=== PATIENT | female | born 1940 | race Caucasian/White ===

== ENCOUNTER → 2016-03-06 | Outpatient (CLI) | payer BC ==
[~2016-03-06] MED LIST: IBUP-103 PO; OXYC7.5T65 PO; POLY335040 PO; PROM25TA PO; PROM25TA16 PO; [UNRECOGNIZED DRUG - CODE] PO
== END | disposition home or self-care (01) ==
LOC: C.LABSPEC 12:02
PROVIDERS: ATTEND Internal Medicine
DX: J02.9 Acute pharyngitis, unspecified (principal)

== ENCOUNTER → 2016-03-24 | Outpatient (CLI) | payer BC ==
--- NOTE | 2016-03-24 15:09 | MAMMOGRAPHY REPORT ---
BILATERAL DIGITAL SCREENING MAMMOGRAM WITH CAD: 03/24/2016 CLINICAL HISTORY: Routine screening. Patient has no complaints. TECHNIQUE: Current study was also evaluated with a Computer Aided Detection (CAD) system. Bilatera l CC and MLO views were obtained. COMPARISON: Comparison is made to exams dated: 03/15/2015 mammogram, 03/13/2014 mammogram, 02/18/2013 ma mmogram, 02/09/2012 mammogram, and 02/07/2011 mammogram - [facility]. BREAST COMPOSITION: There are scattered areas of fibroglandular density in both breasts. FINDINGS: No suspicious masses, calcifications, or areas of architectural distortion are noted in e ither breast. There has been no significant interval change compared to prior exams. Nodular asymme try seen within the right medial breast on the cc view is stable dating back to at least the 2007 ex am, and considered benign given long-term stability. Bilateral benign-appearing calcifications are not significantly changed. IMPRESSION: ACR BI-RADS CATEGORY 2: BENIGN There is no mammographic evidence of malignancy. A 1 year screening mammogram is recommended. The p atient will receive written notification of the results. Approximately 10% of breast cancers are not detected with mammography. A negative mammographic repor t should not delay biopsy if a clinically suggestive mass is present. Marcie Jung M.D. /:03/24/2016 14:45:21 Linoleum Layer: Rosemary WILSON)([place]), [facility] letter sent: Normal 1/2 BI-RADS Code: ACR BI-RADS Category 2: Benign
== END | disposition home or self-care (01) ==
LOC: C.MAMM 14:08
PROVIDERS: ATTEND Internal Medicine
DX: Z12.31 Encounter for screening mammogram for malignant neoplasm of breast (principal)

== ENCOUNTER → 2016-09-05 | Outpatient (CLI) | payer BC ==
[~2016-09-05] MED LIST changes: +AREDS 2 PO; +BACL10TA PO; +FEXO1TAB58 PO
[2016-09-05 12:58] LABS: BASO ABS # 0.06 K/uL (0-0.2); COMPLETE YES; EOS % 4.2 %; LYMPH % 21.1 %; LYMPH ABS # 1.21 K/uL (1.2-3.4); MEAN CELL VOLUME 97.4 fL (80-100); MEAN CORPUSCULAR HEMOGLOBIN 31.8 pg (25-34); MEAN CORPUSCULAR HGB CONC 32.7 g/dl (32-36); MEAN PLATELET VOLUME 9.8 fL (7.4-10.4); MONO % 10.8 %; NEUT % 62.9 %; PLATELET COUNT 248 K/uL (130-400); WHITE BLOOD COUNT 5.74 K/uL (4.8-10.8)
[2016-09-05 13:05] LABS: ESTIMATED AVERAGE GLUCOSE 108 mg/dl; HA1C FLAG Normal (Normal)
[2016-09-05 13:13] LABS: ALT/SGPT 24 U/L (12-78); AST/SGOT 26 U/L (15-37); BLOOD UREA NITROGEN 14 mg/dl (7-18); BUN/CREATININE RATIO 19.7 (10-20); CALCIUM 9.3 mg/dl (8.5-10.1); CARBON DIOXIDE 29 mmol/L (21-32); CHLORIDE 105 mmol/L (98-107); CHOLESTEROL 244 mg/dl (0-200); CREATININE 0.73 mg/dl (0.60-1.20); GLUCOSE 84 mg/dl (70-99); POTASSIUM 4.6 mmol/L (3.5-5.1); SODIUM 138 mmol/L (136-145); TRIGLYCERIDES 73 mg/dl (0-150); VERY LOW DENSITY LIPOPROT CALC 15 mg/dl
[2016-09-05 13:16] LABS: ALB/GLOB RATIO 0.9 (0.9-2); ALKALINE PHOSPHATASE 89 U/L (45-117); CHOLESTEROL/HDL RATIO 3.3; HDL CHOLESTEROL 75 mg/dl
== END | disposition home or self-care (01) ==
LOC: C.LABSPEC 12:19
PROVIDERS: ATTEND Internal Medicine
DX: Z00.01 Encounter for general adult medical examination with abnormal findings (principal); R73.9 Hyperglycemia, unspecified; M19.90 Unspecified osteoarthritis, unspecified site; E78.5 Hyperlipidemia, unspecified; E55.9 Vitamin D deficiency, unspecified

== ENCOUNTER → 2016-09-15 | Outpatient (CLI) | payer BC | END | disposition home or self-care (01) | LOC: C.LABSPEC 14:40 | PROVIDERS: ATTEND Internal Medicine | DX: Z12.11 Encounter for screening for malignant neoplasm of colon (principal) ==

== ENCOUNTER 2016-11-18 03:20 | Emergency (ER) | payer BC ==
[~2016-11-18] VITALS: Ht 162.6 cm; Wt 65.0 kg
[~2016-11-18 03:20] MED LIST changes: -AREDS 2 PO; -BACL10TA PO; -FEXO1TAB58 PO
[2016-11-18 03:28] VITALS: TEMP 36.6; Ht 162.6 cm; Wt 65.0 kg
[2016-11-18 04:06] LABS: BASO % 1.2 %; BASO ABS # 0.07 K/uL (0-0.2); COMPLETE YES; IG% 0.5 %; MEAN CELL VOLUME 94.6 fL (80-100); MEAN CORPUSCULAR HGB CONC 32.8 g/dl (32-36); MEAN PLATELET VOLUME 8.8 fL (7.4-10.4); NEUT % 53.3 %; PLATELET COUNT 252 K/uL (130-400); RED BLOOD COUNT 4.23 M/uL (4.2-5.4); WHITE BLOOD COUNT 5.62 K/uL (4.8-10.8)
[2016-11-18] MEDS ORDERED: SODIUM CHLORIDE 0.9% 1000ML 1,000 ML IV STA (04:26)
[2016-11-18 04:27] LABS: ALT/SGPT 30 U/L (12-78); AST/SGOT 30 U/L (15-37); BLOOD UREA NITROGEN 18 mg/dl (7-18); BUN/CREATININE RATIO 23.7 (10-20); CALCIUM 9.5 mg/dl (8.5-10.1); CARBON DIOXIDE 26 mmol/L (21-32); CHLORIDE 107 mmol/L (98-107); CREATININE 0.74 mg/dl (0.60-1.20); GLUCOSE 76 mg/dl (70-99); POTASSIUM 3.7 mmol/L (3.5-5.1); SODIUM 142 mmol/L (136-145)
[2016-11-18 04:42] LABS: ALB/GLOB RATIO 0.9 (0.9-2); ALKALINE PHOSPHATASE 102 U/L (45-117)
[2016-11-18 04:47] LABS: URINE APPEARANCE CLEAR (CLEAR); URINE BILIRUBIN NEG (NEG); URINE COLOR YELLOW; URINE EPITHELIAL CELL AUTO >30 /lpf (0-5); URINE NITRITE NEG (NEG); URINE SPECIFIC GRAVITY 1.023 (1.000-1.030); UROBILINOGEN NEG (NEG)
[2016-11-18 04:48] LABS: MANUAL MICROSCOPIC REQUIRED? NO; REVIEW REQ? YES
[2016-11-18] MEDS ORDERED: BACL10TA PO (04:56)
[2016-11-18] MEDS ORDERED: FEXO1TAB58 PO (04:57)
[2016-11-18] MEDS ORDERED: AREDS 2 PO (05:00)
[2016-11-18] MEDS ORDERED: OPTIRAY 320 IV PRN (05:15)
[2016-11-18 06:00] VITALS: BP 122/75; PULSE 83; O2SAT 97
--- NOTE | 2016-11-18 06:26 | EMERGENCY ROOM VISIT NOTE ---
History Report prepared by Nika: Allegra Gregorio Under the Supervision of: Dr. Annette Quiroz D.O. First contact with patient: 03:39 Chief Complaint: DIZZY Stated Complaint: DIZZY,CRAMPS,SICK History of Present Illness The patient is a 76 year old female who presents to the Emergency Room with complaints of an episode of dizziness occurring this evening. The patient states that she got up to go to the bathroom and collapsed on the floor. She reports that her legs wouldn't work. She states that while on the floor she was nauseous, diaphoretic, slightly short of breath, and felt like she was going to pass out. She states she laid there for a while and told her not to move her when he came to help. She notes that she felt fine before going to bed and this had never happened before. She states that she did eat dinner last night, but notes that she had a Martini and a glass of wine. She states that that was 10 hours ago and she normally has something to drink every night. The patient complains of a cramp in her right ribs and cramps in her legs. She states that she normally gets leg cramps and is on Baclofen for it. She notes she last took it three days ago. The patient denies hurting herself when she fell and diarrhea. Source of History: patient Onset: this evening Position: other (global) Quality: other (global) Timing: other (episode) Associated Symptoms: + diaphoresis, + SOB, + nausea, No diarrhea Note: The patient complains of feeling like she was going to pass out and muscle cramping. The patient denies hurting herself when she fell. Review of Systems See HPI for pertinent positives & negatives. A total of 10 systems reviewed and were otherwise negative. Past Medical & Surgical Medical Problems: (1) No Known Active Medical Problems Surgical Problems: (1) History of back surgery (2) Hx of foot surgery (3) Hx of hysterectomy Family History Cancer Heart disease Hypertension Lung disease Social History Smoking Status: Former Smoker Smokeless Tobacco Use: No Alcohol Use: other (daily) Drug Use: none Marital Status: Housing Status: lives with significant other Occupation Status: retired Current/Historical Medications Scheduled Baclofen (Lioresal), 10 MG PO DAILY Fexofenadine-Pseudoephedrine (Afia-D 24 Hour Allergy), 1 TAB PO DAILY Polyethylene (Miralax Powder Packet), 17 GM PO DAILY [Areds 2], 2 TABS PO DAILY Allergies Coded Allergies: Codeine (Verified Allergy, Mild, `, 11/10/13) Physical Exam Vital Signs Date Time Temp Pulse Resp B/P (MAP) Pulse Ox O2 Delivery O2 Flow Rate FiO2 11/18/16 06:00 83 18 122/75 97 Room Air 11/18/16 05:30 76 15 116/72 99 Room Air 11/18/16 05:00 79 18 112/68 98 Room Air 11/18/16 04:31 101/62 11/18/16 04:30 79 20 97 Room Air 11/18/16 04:08 115/62 11/18/16 03:53 79 18 107/63 97 Room Air 91 119/71 96 91/68 11/18/16 03:45 83 11/18/16 03:28 36.6 81 20 106/68 98 Room Air Physical Exam HEENT: Head - normocephalic and atraumatic Pupils are equal, round, and reactive to light. Extraocular eye muscles are intact, and sclera are anicteric. Nose - moist nasal mucosa without discharge. Mouth - moist buccal mucosa. Oropharynx is nonerythematous and there is no tonsillar exudate or edema noted. Neck: Supple; no JVD, nuchal rigidity, cervical lymphadenopathy, or auscultated bruits. Heart: Regular rate and rhythm. There is a normal S1 and S2 with no murmurs, clicks, or gallops appreciated. Lungs: Clear to auscultation bilaterally with no wheezes, rales, or rhonchi. Abdomen: Soft, completely nontender, nondistended, with good bowel sounds. There are no palpable pulsatile masses or hepatosplenomegaly. There is no guarding, rigidity, or rebound noted. Extremities: No evidence of cyanosis, clubbing, or edema. There are easily palpable peripheral pulses. Skin: warm and dry with good turgor and no rashes. Medical Decision & Procedures ER Provider Diagnostic Interpretation: Radiology results as stated below per my review and the radiologist's interpretation: CT CHEST With Contrast: Comparison: CT chest 03/04/09 No pulmonary embolism detected. No consolidation. 3 mm right lower lobe pulmonary nodule (4/132), similar to prior. No pleural effusion of pneumothorax. Heart size is normal. No pericardial effusion. No thoracic aortic aneurysm or dissection. Small hiatal hernia. Radiologist: Toby Sandoval MD Study ready at 05:31 and initial results transmitted at 06:08. Laboratory Results 11/18/16 03:45 Red Blood Count 4.23, Mean Corpuscular Volume 94.6, Mean Corpuscular Hemoglobin 31.0, Mean Corpuscular Hemoglobin Concent 32.8, Mean Platelet Volume 8.8, Neutrophils (%) (Auto) 53.3, Lymphocytes (%) (Auto) 32.0, Monocytes (%) (Auto) 8.0, Eosinophils (%) (Auto) 5.0, Basophils (%) (Auto) 1.2, Neutrophils # (Auto) 2.99, Lymphocytes # (Auto) 1.80, Monocytes # (Auto) 0.45, Eosinophils # (Auto) 0.28, Basophils # (Auto) 0.07 11/18/16 03:45 Test 11/18/16 00:00 11/18/16 03:45 Urine Color YELLOW Urine Appearance CLEAR (CLEAR) Urine pH 6.0 (4.5-7.5) Urine Specific [place] 1.023 (1.000-1.030) Urine Protein TRACE (NEG) Urine Glucose (UA) NEG (NEG) Urine Ketones TRACE (NEG) Urine Occult Blood NEG (NEG) Urine Nitrite NEG (NEG) Urine Bilirubin NEG (NEG) Urine Urobilinogen NEG (NEG) Urine Leukocyte Esterase SMALL (NEG) Urine WBC (Auto) 1-5 /hpf (0-5) Urine RBC (Auto) 0-4 /hpf (0-4) Urine Hyaline Casts (Auto) >30 /lpf (0-5) Urine Epithelial Cells (Auto) >30 /lpf (0-5) Urine Bacteria (Auto) NEG (NEG) Urine Renal Epithelial Cells /lpf (0-5) Urine Crystals CALCIUM OXALATE (NONE Urine Pathogenic Casts /lpf (0) White Blood Count 5.62 K/uL (4.8-10.8) Red Blood Count 4.23 M/uL (4.2-5.4) Hemoglobin 13.1 g/dL (12.0-16.0) Hematocrit 40.0 % (37-47) Mean Corpuscular Volume 94.6 fL (80-100) Mean Corpuscular Hemoglobin 31.0 pg (25-34) Mean Corpuscular Hemoglobin Concent 32.8 g/dl (32-36) Platelet Count 252 K/uL (130-400) Mean Platelet Volume 8.8 fL (7.4-10.4) Neutrophils (%) (Auto) 53.3 % Lymphocytes (%) (Auto) 32.0 % Monocytes (%) (Auto) 8.0 % Eosinophils (%) (Auto) 5.0 % Basophils (%) (Auto) 1.2 % Neutrophils # (Auto) 2.99 K/uL (1.4-6.5) Lymphocytes # (Auto) 1.80 K/uL (1.2-3.4) Monocytes # (Auto) 0.45 K/uL (0.11-0.59) Eosinophils # (Auto) 0.28 K/uL (0-0.5) Basophils # (Auto) 0.07 K/uL (0-0.2) RDW Standard Deviation 45.1 fL (36.4-46.3) RDW Coefficient of Variation 12.9 % (11.5-14.5) Immature Granulocyte % (Auto) 0.5 % Immature Granulocyte # (Auto) 0.03 K/uL (0.00-0.02) D-Dimer 2250 ug/L FEU (0-500) Anion Gap 9.0 mmol/L (3-11) Est Creatinine Clear Calc Drug Dose 55.0 ml/min Estimated GFR () 90.6 Estimated GFR (Non- 78.1 BUN/Creatinine Ratio 23.7 (10-20) Calcium Level 9.5 mg/dl (8.5-10.1) Total Bilirubin 0.2 mg/dl (0.2-1) Aspartate Amino Transf (AST/SGOT) 30 U/L (15-37) Alanine Aminotransferase (ALT/SGPT) 30 U/L (12-78) Alkaline Phosphatase 102 U/L (45-117) Total Creatine Kinase 108 U/L (26-192) Creatine Kinase MB 2.2 ng/ml (0.5-3.6) Creatine Kinase MB Ratio 2.0 (0-3.0) Troponin I < 0.015 ng/ml (0-0.045) Total Protein 7.5 gm/dl (6.4-8.2) Albumin 3.6 gm/dl (3.4-5.0) Globulin 3.9 gm/dl (2.5-4.0) Albumin/Globulin Ratio 0.9 (0.9-2) Thyroid Stimulating Hormone (TSH) 2.620 uIu/ml (0.300-4.500) Chemistry Specimen Hemolysis Laboratory results per my review. Medications Administered Medications (Trade) Dose Ordered Sig/Lola Route Start Time Stop Time Status Last Admin Dose Admin Sodium Chloride 1,000 ml @ 999 mls/hr Q1H1M STAT IV 11/18/16 04:26 11/18/16 05:26 DC 11/18/16 04:26 999 MLS/HR Procedure 0426: Ordered NSS 1000 ml @ 999 mls/hr IV. ECG Indication: nausea Rate (beats per minute): 74 Rhythm: normal sinus Findings: no acute ischemic change, no ectopy ED Course 0342: Past medical records reviewed. The patient was evaluated in room A3. A complete history and physical exam was performed. A twelve-lead EKG was obtained as described above. An IV lock was initiated and labs were drawn as above. 0425: I reevaluated the patient and she is significantly orthostatic. Her blood pressure dropped by 30 points when she stood up. I am going to give her some fluids. 0426: Ordered NSS 1000 ml @ 999 mls/hr IV. 0459: I reevaluated the patient and she said she feels much better after receiving fluids. She has an elevated d-dimer. She will go for a CT scan. 0611: Upon reevaluation, the patient is feeling much better. I discussed findings and results with her. She verbalized agreement of the treatment plan. The patient was discharged home. Medical Decision The patient is a 76 year old female who presents to the Emergency Room with complaints of an episode of dizziness occurring this evening. Differential diagnoses include PE, cardiac dysrhythmia, dehydration, orthostasis , vasovagal syncope. LABS: D-dimer 2250 Normal white count Normal H&H Normal TSH Normal glucose Normal LFTs Negative cardiac enzymes Normal renal function Urine had trace proteins, trace ketones, small leukocyte esterase, negative bacteria, negative white blood cells, positive for calcium oxalate crystals. This is a 73-year-old female patient who presents to the emergency department after collapsing at home. The patient states that she stood up from bed and quickly fell to the ground and she felt that her legs gave out. She denies any history of episodes like this in the past. The patient had significant orthostasis on testing. She also describes some right lower chest wall discomfort and some leg cramping. This in conjunction with an elevated d-dimer made me concerned for a PE. CT scan of the chest was performed but was negative for PE. I encouraged the patient to keep herself well-hydrated to avoid orthostasis. I've asked the patient to follow-up with her PCP Medication Reconcilliation Current Medication List: was personally reviewed by me Blood Pressure Screening Patient's blood pressure: Normal blood pressure Blood pressure disposition: Did not require urgent referral Impression Primary Impression: Dehydration Scribe Attestation The scribe's documentation has been prepared under my direction and personally reviewed by me in its entirety. I confirm that the note above accurately reflects all work, treatment, procedures, and medical decision making performed by me. Departure Information Dispostion Home / Self-Care Referrals Louis Morales M.D. (PCP) Forms HOME CARE DOCUMENTATION FORM, IMPORTANT VISIT INFORMATION Patient Instructions My [facility] Additional Instructions Rest. Take plenty of clear liquids Follow up with PCP on Sunday for a recheck
--- NOTE | 2016-11-18 07:02 | DIAGNOSTIC IMAGING REPORT ---
CT ANGIOGRAM OF THE CHEST CLINICAL HISTORY: Atypical chest pain. Dizziness. COMPARISON STUDY: Chest x-ray dated 10/27/2011. Chest CT dated 03/04/2009. TECHNIQUE: Following the IV administration of 80 cc of Optiray 320, CT angiogram of the chest was performed from the upper abdomen to the thoracic inlet utilizing the pulmonary embolus protocol. Images are reviewed in the axial, sagittal, and coronal planes. 3-D MIPS images are created and assessed. IV contrast was administered without complication. A dose lowering technique was utilized adhering to the principles of ALARA. CT DOSE: 251.77 mGy.cm FINDINGS: Thyroid: Imaged portions of the thyroid gland are normal in size and attenuation. Thoracic aorta: There is mild atherosclerotic calcification of the thoracic aorta, which is normal in caliber and demonstrates standard 3-vessel arch anatomy. No dissection is seen. Pulmonary vasculature: The pulmonary trunk is normal in caliber. There are no filling defects identified in main, lobar, or segmental pulmonary branches to suggest pulmonary embolus. Heart: The heart is normal in size and configuration, and without pericardial effusion. Lungs and pleural spaces: There are scattered calcified granulomas. There is a 3 mm right lower lobe pulmonary nodule seen image #132. This was also seen in 2010. The lungs and pleural spaces are otherwise clear. The trachea and central airways are patent. Mediastinum: There is no mediastinal lymphadenopathy. Jessica: Clear. Axillae: There is no axillary lymphadenopathy. Upper abdomen: Partially visualized upper abdominal viscera is within normal limits. Skeletal structures: The skeletal structures are osteopenic. No lytic or blastic bony lesions are seen. IMPRESSION: 1. There is no evidence of pulmonary embolus in the main, lobar, or segmental pulmonary arteries. 2. There is no airspace consolidation or pleural effusion. Electronically signed by: Ede Grant M.D. 11/18/2016 7:01 AM Dictated Date/Time: 11/18/2016 6:55 AM
== END 2016-11-18 06:25 | disposition home or self-care (01) ==
LOC: C.EDB 03:21 → C.EDA 06:25
DX: E86.0 Dehydration (principal); Z90.710 Acquired absence of both cervix and uterus; Z80.9 Family history of malignant neoplasm, unspecified; Z82.49 Family history of ischemic heart disease and other diseases of the circulatory system; Z87.891 Personal history of nicotine dependence; Z79.899 Other long term (current) drug therapy

== ENCOUNTER → 2016-11-20 | Outpatient (CLI) | payer BC ==
[~2016-11-20] MED LIST changes: +AREDS 2 PO; +BACL10TA PO; +FEXO1TAB58 PO
--- NOTE | 2016-11-20 12:42 | DIAGNOSTIC IMAGING REPORT ---
R RIBS UNILATERAL WITH PA CHEST CLINICAL HISTORY: RIGHT SIDED RIB PAIN AFTER FALLING COMPARISON STUDY: Chest CTA 11/18/2016. FINDINGS: The lungs are clear. The heart is normal in size. No pneumothorax. No pleural effusions. Slight deformity within the right anterolateral eighth rib. This likely represents a nondisplaced fracture. IMPRESSION: Nondisplaced right anterolateral eighth rib fracture. Electronically signed by: Charly Andrews M.D. 11/20/2016 12:41 PM Dictated Date/Time: 11/20/2016 12:35 PM
== END | disposition home or self-care (01) ==
LOC: C.RAD 11:46
PROVIDERS: ATTEND Internal Medicine
DX: S22.31XA Fracture of one rib, right side, initial encounter for closed fracture (principal); W19.XXXA Unspecified fall, initial encounter

== ENCOUNTER → 2016-12-15 | Outpatient (CLI) | payer BC ==
[~2016-12-15] MED LIST changes: -IBUP-103 PO; -OXYC7.5T65 PO; -PROM25TA PO; -PROM25TA16 PO; -[UNRECOGNIZED DRUG - CODE] PO
[2016-12-15 17:54] LABS: BLOOD UREA NITROGEN 17 mg/dl (7-18); BUN/CREATININE RATIO 14.8 (10-20); CALCIUM 9.5 mg/dl (8.5-10.1); CARBON DIOXIDE 30 mmol/L (21-32); CHLORIDE 104 mmol/L (98-107); CREATININE 1.14 mg/dl (0.60-1.20); GLUCOSE 133 mg/dl (70-99); POTASSIUM 3.6 mmol/L (3.5-5.1); SODIUM 140 mmol/L (136-145)
== END | disposition home or self-care (01) ==
LOC: C.LABSPEC 17:35
PROVIDERS: ATTEND Internal Medicine
DX: Z01.818 Encounter for other preprocedural examination (principal)

== ENCOUNTER → 2016-12-18 | Outpatient (CLI) | payer BC ==
--- NOTE | 2016-12-18 12:21 | DIAGNOSTIC IMAGING REPORT ---
ULTRASOUND OF THE CAROTID ARTERIES CLINICAL HISTORY: DISEQUILIBRIUM, WORSENING HEADACHES COMPARISON STUDY: None. TECHNIQUE: Real-time, grayscale, and color Doppler sonography of the carotid arteries was performed. Imaging reviewed in the transverse and longitudinal planes. NASCET criteria was utilized for stenosis calcification. FINDINGS: There is no significant atherosclerotic plaque present . The peak systolic velocity within the right internal carotid artery is 58 cm/sec. The systolic velocity ratio of right internal to common carotid artery is 0.9. The peak systolic velocity within the left internal carotid artery is 80 cm/sec. The systolic velocity ratio left internal to common carotid artery is 1.4. Antegrade flow is seen in the vertebral arteries. The external carotid arteries are patent. Blood pressure in the right arm measured 112 mm/Hg. Blood pressure in the left arm measured 112 mm/Hg. A nonpathologically enlarged right cervical lymph node was visualized. IMPRESSION: No evidence of hemodynamically significant carotid stenosis. Electronically signed by: Mick Reagan M.D. 12/18/2016 12:19 PM Dictated Date/Time: 12/18/2016 12:18 PM
== END | disposition home or self-care (01) ==
LOC: C.ULTRBC 10:32
PROVIDERS: ATTEND Internal Medicine
DX: R42 Dizziness and giddiness (principal)

== ENCOUNTER → 2016-12-25 | Outpatient (CLI) | payer BC ==
[~2016-12-25] MED LIST changes: +GADAVIST IV PRN
--- NOTE | 2016-12-25 08:17 | DIAGNOSTIC IMAGING REPORT ---
Brain MRI WITH AND WITHOUT CONTRAST HISTORY: DISEQUILIBRIUM, WORSENING HEADACHES TECHNIQUE: Multiplanar multisequence MRI of the brain was performed both before and after the intravenous administration of contrast. COMPARISON STUDY: None. FINDINGS: There is no mass, hematoma, midline shift, or acute infarct. Mild mucosal thickening within the left maxillary sinus.. The mastoid air cells are clear. The ventricles and sulci demonstrate mild age-related involutional changes. Scattered foci of T2 hyperintensity seen within the periventricular and subcortical white matter are nonspecific but suggestive of mild microvascular ischemic changes. The major vascular flow voids at the skull base are well-maintained. No abnormal enhancement. IMPRESSION: No acute intracranial abnormality. Scattered foci of T2 hyperintensity seen within the periventricular and subcortical white matter are nonspecific but favor microvascular ischemic change. Electronically signed by: Charly Andrews M.D. 12/25/2016 8:16 AM Dictated Date/Time: 12/25/2016 7:57 AM
== END | disposition home or self-care (01) ==
LOC: C.MRIBC 06:58
PROVIDERS: ATTEND Internal Medicine
DX: R42 Dizziness and giddiness (principal); R51 Headache

== ENCOUNTER → 2016-12-27 | Outpatient (CLI) | payer BC ==
[~2016-12-27] MED LIST changes: -GADAVIST IV PRN
[2016-12-27 13:25] LABS: BASO % 1.7 %; BASO ABS # 0.07 K/uL (0-0.2); COMPLETE YES; EOS % 5.9 %; HEMATOCRIT 38.1 % (37-47); IG% 0.2 %; LYMPH % 26.7 %; LYMPH ABS # 1.08 K/uL (1.2-3.4); MEAN CELL VOLUME 95.7 fL (80-100); MEAN CORPUSCULAR HEMOGLOBIN 31.4 pg (25-34); MEAN CORPUSCULAR HGB CONC 32.8 g/dl (32-36); MEAN PLATELET VOLUME 9.5 fL (7.4-10.4); MONO % 13.8 %; NEUT % 51.7 %; PLATELET COUNT 300 K/uL (130-400); RED BLOOD COUNT 3.98 M/uL (4.2-5.4); WHITE BLOOD COUNT 4.05 K/uL (4.8-10.8)
[2016-12-27 13:40] LABS: ESTIMATED AVERAGE GLUCOSE 111 mg/dl; HA1C FLAG Normal (Normal)
[2016-12-27 15:27] LABS: ALT/SGPT 24 U/L (12-78); AMYLASE 57 U/L (25-115); BLOOD UREA NITROGEN 21 mg/dl (7-18); BUN/CREATININE RATIO 25.7 (10-20); CALCIUM 9.5 mg/dl (8.5-10.1); CARBON DIOXIDE 29 mmol/L (21-32); CHLORIDE 101 mmol/L (98-107); GLUCOSE 79 mg/dl (70-99); POTASSIUM 4.3 mmol/L (3.5-5.1); SODIUM 136 mmol/L (136-145)
[2016-12-27 15:30] LABS: ALKALINE PHOSPHATASE 106 U/L (45-117); AST/SGOT 25 U/L (15-37)
== END | disposition home or self-care (01) ==
LOC: C.LABSPEC 12:37
PROVIDERS: ATTEND Internal Medicine
DX: R73.9 Hyperglycemia, unspecified (principal); R11.0 Nausea; E55.9 Vitamin D deficiency, unspecified

== ENCOUNTER → 2017-01-01 | Outpatient (CLI) | payer BC ==
--- NOTE | 2017-01-01 07:15 | DIAGNOSTIC IMAGING REPORT ---
GALLBLADDER-ABD LIMITED CLINICAL HISTORY: RECURRENT NAUSEA pain TECHNIQUE: Ultrasound COMPARISON STUDY: None FINDINGS: Normal gallbladder. Common bile duct 6 mm. Liver is uniform. Pancreas and right kidney are unremarkable. IMPRESSION: Normal study The above report was generated using voice recognition software. It may contain grammatical, syntax or spelling errors. Electronically signed by: Juventino Manning M.D. 01/01/2017 7:13 AM Dictated Date/Time: 01/01/2017 7:12 AM
== END | disposition home or self-care (01) ==
LOC: C.ULTR 06:46
PROVIDERS: ATTEND Internal Medicine
DX: R11.0 Nausea (principal)

== ENCOUNTER → 2017-02-07 | Outpatient (CLI) | payer BC ==
[~2017-02-07] MED LIST changes: +CHOL2000 PO
[2017-02-07 12:48] LABS: BASO % 1.1 %; BASO ABS # 0.06 K/uL (0-0.2); EOS % 5.1 %; EOS ABS # 0.27 K/uL (0-0.5); HEMATOCRIT 39.2 % (37-47); HEMOGLOBIN 12.9 g/dL (12.0-16.0); IG# 0.02 K/uL (0.00-0.02); LYMPH % 24.6 %; LYMPH ABS # 1.31 K/uL (1.2-3.4); MEAN CELL VOLUME 96.8 fL (80-100); MEAN CORPUSCULAR HEMOGLOBIN 31.9 pg (25-34); MEAN CORPUSCULAR HGB CONC 32.9 g/dl (32-36); MEAN PLATELET VOLUME 9.4 fL (7.4-10.4); MONO % 9.4 %; NEUT % 59.4 %; NEUT ABS # 3.17 K/uL (1.4-6.5); PLATELET COUNT 284 K/uL (130-400); RED CELL DISTRIBUTION WIDTH CV 13.4 % (11.5-14.5); RED CELL DISTRIBUTION WIDTH SD 47.6 fL (36.4-46.3); WHITE BLOOD COUNT 5.33 K/uL (4.8-10.8)
[2017-02-07 13:08] LABS: ALBUMIN 3.7 gm/dl (3.4-5.0); ALT/SGPT 30 U/L (12-78); AST/SGOT 27 U/L (15-37); BLOOD UREA NITROGEN 17 mg/dl (7-18); CALCIUM 9.3 mg/dl (8.5-10.1); CARBON DIOXIDE 28 mmol/L (21-32); CREATININE 0.77 mg/dl (0.60-1.20); GLUCOSE 88 mg/dl (70-99); POTASSIUM 3.9 mmol/L (3.5-5.1); SODIUM 135 mmol/L (136-145)
[2017-02-07 13:10] LABS: ALKALINE PHOSPHATASE 109 U/L (45-117); TOTAL PROTEIN 7.8 gm/dl (6.4-8.2)
== END | disposition home or self-care (01) ==
LOC: C.LABSPEC 12:13
PROVIDERS: ATTEND Internal Medicine
DX: R55 Syncope and collapse (principal)

== ENCOUNTER → 2017-02-08 | Outpatient (CLI) | payer BC ==
--- NOTE | 2017-02-09 17:39 | Holter Monitor ---
Holter Monitor Report Holter Monitor Report Date of Service: 02/08/2017 Holter Monitor Report Indication: Presyncope Patient was monitored for. 23 hours and 26 minutes. The rhythm during the entire monitoring period was sinus The average heart rate was 74 beats per minute with a minimum of 50 and maximum of 108 Very rare and isolated atrial and ventricular premature contractions There were no sustained atrial or ventricular arrhythmias. There were no significant periods of bradycardia, pauses or episodes of heart block There is no atrial fibrillation Patient reported 1 symptom of "dizziness" which correlated with normal sinus rhythm Impression Normal Holter monitor without significant arrhythmia No correlation between symptoms of dizziness and arrhythmia
== END | disposition home or self-care (01) ==
LOC: C.CPL 10:54
PROVIDERS: ATTEND Internal Medicine
DX: R55 Syncope and collapse (principal)

== ENCOUNTER → 2017-04-05 | Outpatient (CLI) | payer BC ==
[~2017-04-05] MED LIST changes: -CHOL2000 PO
--- NOTE | 2017-04-05 15:19 | MAMMOGRAPHY REPORT ---
UNILATERAL LEFT DIGITAL DIAGNOSTIC MAMMOGRAM TOMOSYNTHESIS: 04/05/2017 CLINICAL HISTORY: Callback from screening mammogram for questionable left breast architectural distor tion. TECHNIQUE: Breast tomosynthesis in addition to standard 2D mammography was performed. Spot compress ion left CC and MLO tomosynthesis images were obtained. COMPARISON: Comparison is made to exams dated: 03/27/2017 mammogram, 03/24/2016 mammogram, 03/15/2015 ma mmogram, 03/13/2014 mammogram, 02/18/2013 mammogram, and 02/13/2012 ultrasound - [facility] [address]. BREAST COMPOSITION: There are scattered areas of fibroglandular density in the left breast. FINDINGS: The previously described area of questionable architectural distortion seen within the left lateral posterior breast on the CC view only does not persist on the additional spot compression vie ws. Normal fibroglandular tissue is seen in this region, without evidence of a mass, architectural d istortion, or other suspicious finding on the additional tomosynthesis images. Findings are benign a nd compatible with normal fibroglandular tissue. IMPRESSION: ACR BI-RADS CATEGORY 2: BENIGN No persistent architectural distortion seen within the left lateral breast on the additional views. Findings are benign and compatible with normal fibroglandular tissue. There is no mammographic evide nce of malignancy. A 1 year screening mammogram is recommended. The patient has been verbally notifi ed of the results. Approximately 10% of breast cancers are not detected with mammography. A negative mammographic report should not delay biopsy if a clinically suggestive mass is present. Marcie Jung M.D. ah/:04/05/2017 10:12:47 Infant Caregiver: Sylwia BARBOUR(Mariel)([place]), [facility] letter sent: Normal 1/2 BI-RADS Code: ACR BI-RADS Category 2: Benign
== END | disposition home or self-care (01) ==
LOC: C.MAMM 09:50
PROVIDERS: ATTEND Internal Medicine
DX: R92.8 Other abnormal and inconclusive findings on diagnostic imaging of breast (principal); N64.89 Other specified disorders of breast

== ENCOUNTER → 2017-05-22 | Outpatient (CLI) | payer BC ==
--- NOTE | 2017-05-22 10:53 | DIAGNOSTIC IMAGING REPORT ---
LUMBAR SPINE MRI HISTORY: LUMBAR RADICULOPATHY TECHNIQUE: Multiplanar multisequence MRI of the lumbar spine was performed without the use of contrast. COMPARISON: Lumbar spine MRI 03/22/2015. FINDINGS: For the purpose of the report the L5-S1 disc space will be located on axial image 27 of 30. Mild levoscoliosis. There is 3 mm of retrolisthesis of L1 on L2 and L2 on L3. This remains unchanged. Moderate disc space narrowing L3-L4 and L1-L2. Severe disc space narrowing at L2-L3, L4-L5, and L5-S1, unchanged. There is also moderate facet osteoarthritis throughout the lumbar spine. Paraspinal soft tissues are unremarkable. Marrow heterogeneity is likely age-related. Small colonic cyst at S2. The conus terminates at the L1 level. There is a mild inferior endplate compression fracture at L1. This remains unchanged. Endplate edema at L3-L4 favors long-standing degenerative change. This has progressed in the interval. L1-L2: Broad-based posterior disc bulge with a small focal central disc protrusion resulting in mild central canal and mild right neural foraminal narrowing. There is moderate to severe left-sided neural foraminal narrowing. This is not significantly changed. L2-L3: Small broad-based posterior disc bulge resulting in mild central canal and mild bilateral neural foraminal narrowing. There is a focal central annular tear. L3-L4: Broad-based posterior disc bulge with ligamentum and facet hypertrophy resulting in mild to moderate central canal and mild left-sided neural foraminal narrowing. There is moderate right neural foraminal narrowing. L4-L5: No significant central canal narrowing. Mild to moderate bilateral neural foraminal narrowing. L5-S1: Small broad-based posterior disc bulge with a tiny focal central disc protrusion. This does not result in significant central canal narrowing. There is moderate right and severe left neural foraminal narrowing, unchanged. IMPRESSION: 1. Endplate edema at L3-L4 has slightly progressed. This favors long-standing degenerative change. 2. Otherwise, no significant change compared to the prior study. 3. Old inferior endplate compression deformity at L1. No acute fractures identified. 4. Multilevel degenerative changes as described above. 5. Levoscoliosis of the lumbar spine. Electronically signed by: Charly Andrews M.D. 05/22/2017 10:52 AM Dictated Date/Time: 05/22/2017 10:43 AM
== END | disposition home or self-care (01) ==
LOC: C.MRI 09:38
PROVIDERS: ATTEND Internal Medicine
DX: M54.16 Radiculopathy, lumbar region (principal); M41.9 Scoliosis, unspecified